=== PATIENT | female | born 1955 | race Caucasian/White ===

== ENCOUNTER 2018-03-31 11:59 | Observation (INO) ==
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
[2018-03-31 12:52] LABS: Hematocrit 39.9 % (37.0-47.0); Hemoglobin 13.2 gm/dL (12.5-16.0); Mean Cell Volume 89.3 fl (78-100); Mean Corpuscular Hemoglobin 29.5 pg (27-31); Mean Corpuscular Hgb Conc 33.1 g/dl (32-36); Mean Platelet Volume 11.4 fl (6.0-9.5); Neutrophil # 16.8 K/mm3 (1.3-6.0); Neutrophil % 92.3 % (42-75.0); Platelet Count 192 K/mm3 (150-450); Red Blood Count 4.47 M/mm3 (4.2-5.4); Red Cell Distribution Width 15.9 % (11.5-14.0); White Blood Count 18.2 K/mm3 (4.0-10.5)
[2018-03-31] MEDS: LEVOFLOXACIN IN DEXTROSE 5 % 750 MG/150 ML BAG IV ONE (13:10)
[2018-03-31 13:12] LABS: Albumin * 2.8 gm/dl (3.4-5.0); Anion Gap 13.9 mmol/L (6.8-13.8); BUN/Creatinine Ratio 20.6 (9.0-21.6); Bilirubin, Total 1.1 mg/dL (0.0-1.1); Ca. Corrected For Albumin 9.7 mg/dL (8.4-10.2); Calcium * 9.1 mg/dL (7.9-10.9); Carbon Dioxide 26.2 mmol/L (24-32.6); Potassium 3.1 mmol/L (3.4-4.6); Total Protein 8.2 gm/dL (6.2-8.2)
[2018-03-31 13:29] LABS: CRP 42.4 mg/dL (0.0-0.9)
[2018-03-31] MEDS ORDERED: HYDROcodone/ACETAMINOPHEN 1 EACH TABLET ONE (14:08)
[2018-03-31] MEDS ORDERED: POTASSIUM CHLORIDE 20 MEQ TABLET.SA ONE (14:08)
[2018-03-31] MEDS: HYDROcodone/ACETAMINOPHEN 1 EACH TABLET PO ONE (14:09)
[2018-03-31] MEDS: POTASSIUM CHLORIDE 20 MEQ TABLET.SA PO ONE (14:09)
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
[2018-03-31] MEDS: METHYLPREDNISOLONE SOD SUCC/PF 40 MG/ML VIAL IV ONE (16:18)
[2018-03-31] MEDS: oxyCODONE HCL/ACETAMINOPHEN 1 TAB TABLET PO PRN (20:57)
[2018-04-01 05:30] LABS: Hematocrit 39.5 % (37.0-47.0); Mean Cell Volume 88.8 fl (78-100); Mean Corpuscular Hemoglobin 29.2 pg (27-31); Mean Corpuscular Hgb Conc 32.9 g/dl (32-36); Neutrophil # 15.8 K/mm3 (1.3-6.0); Neutrophil % 94.6 % (42-75.0); Platelet Count 205 K/mm3 (150-450); Red Blood Count 4.45 M/mm3 (4.2-5.4); Red Cell Distribution Width 15.9 % (11.5-14.0); White Blood Count 16.6 K/mm3 (4.0-10.5)
[2018-04-01 05:43] LABS: Albumin * 2.4 gm/dl (3.4-5.0); Anion Gap 12.5 mmol/L (6.8-13.8); BUN/Creatinine Ratio 23.5 (9.0-21.6); Bilirubin, Total 0.6 mg/dL (0.0-1.1); Ca. Corrected For Albumin 10.4 mg/dL (8.4-10.2); Calcium * 9.4 mg/dL (7.9-10.9); Carbon Dioxide 27.6 mmol/L (24-32.6); Potassium 4.1 mmol/L (3.4-4.6); Total Protein 7.9 gm/dL (6.2-8.2)
--- NOTE | 2018-04-01 10:35 | DS ---
(1) Cellulitis Problem: Acute Qualifiers: Site of cellulitis: extremity Site of cellulitis of extremity: upper extremity Laterality: right Qualified Code(s): L03.113 - Cellulitis of right upper limb Description of Stay: Adelina is a 62 yo female with Lupus who was admitted for cellulitis of right hand and forearm. She had not been on antibiotics recently, but due to the severity of swelling in hand and redness streaking up her right arm she was admitted to observation and started on Levaquin. She was also given IV solumedrol to help with swelling/inflammation. Overnight erythema and swelling significantly improved and she will be discharged to home with continued levaquin and prednisone. Procedures Performed: none Discharge Location: Home Disposition: Home self-care Condition: Good Discharge Diet: General/regular food Referrals: [facility],OUTSIDE [Non Staff Physicians] - One Week (Follow up with PCP in 1 week) Problem Oriented Discharge Instructions to Patient/Family: Cellulitis, Adult, [id number] Additional Patient Instructions (free text): -Please make TCM appointment unless assisted discharge. Thank you! Parris @ ext:[phone]. Ice and elevate right hand. Prescriptions (Any new or edited meds): Levofloxacin [Levaquin] 750 mg PO DAILY #6 tablet predniSONE [Prednisone] 2 tab PO DAILY #14 tab Complete Home Medications List: Complete Home Medication List: ALPRAZolam [Xanax] 0.5 mg PO TID PRN 03/31/18 Clotrimazole/Betamethasone Dip [Clotrimazole-Betamethasone Crm] 15 gm TP BID Diphenhydramine HCl [Sleep Aid] 50 mg PO DAILY PRN 03/31/18 Folic Acid 1 mg PO DAILY 03/31/18 Indomethacin 50 mg PO TID 03/31/18 Methotrexate Sodium [Methotrexate] 10 mg PO TU 03/31/18 Multivit-Min/Iron/Folic/Lutein [Centrum Silver Women Tablet] 1 each PO DAILY Levofloxacin [Levaquin] 750 mg PO DAILY #6 tablet 04/01/18 predniSONE [Prednisone] 2 tab PO DAILY #14 tab 04/01/18
[2018-04-01] MEDS: LEVOFLOXACIN IN DEXTROSE 5 % 750 MG/150 ML BAG IV SCH (10:55)
[2018-04-01 13:00] VITALS: BP 137/76
== END 2018-04-01 13:15 | disposition home or self-care (01) ==
LOC: ER 11:59 → MS 13:53
PROVIDERS: ADMIT Family Medicine; ATTEND Family Medicine
DX: L03.113 Cellulitis of right upper limb; L93.0 Discoid lupus erythematosus; Z85.72 Personal history of non-Hodgkin lymphomas
CPT/HCPCS: 36415; 73130; 80053; 83605; 84550; 85025; 85652; 86140; 87040; 96365; 96375; 99284; G0378